=== PATIENT | male | born 1940 | race Caucasian/White ===

== ENCOUNTER 2017-02-04 15:31 | Inpatient (IN) | payer BC ==
[2017-02-04] MEDS ORDERED: ACETAMINOPHEN325 M2 PO (15:43)
[2017-02-04] MEDS ORDERED: BUSPIRONE HCL10 M2 PO (15:44)
[2017-02-04] MEDS ORDERED: SINEMET 25-1001 EAC1 PO ×2 (15:44→15:45)
[2017-02-04] MEDS ORDERED: COREG25 M1 PO (15:45)
[2017-02-04] MEDS ORDERED: DILTIAZEM ER120 M3 PO (15:45)
[2017-02-04] MEDS ORDERED: COLACE100 M1 PO (15:45)
[2017-02-04] MEDS ORDERED: ARICEPT5 M1 PO (15:46)
[2017-02-04] MEDS ORDERED: GABAPENTIN100 M1 PO (15:46)
[2017-02-04] MEDS ORDERED: FOLIC ACID1 M1 PO (15:46)
[2017-02-04] MEDS ORDERED: HUMULIN N100 UNIT/2 SC (15:46)
[2017-02-04] MEDS ORDERED: MILK OF MAGNESIA PO (15:47)
[2017-02-04] MEDS ORDERED: LANTUS100 UNITS/ (15:47)
[2017-02-04] MEDS ORDERED: HUMULIN R100 UNITS/ SC (15:47)
[2017-02-04] MEDS ORDERED: PRINIVIL5 M1 PO (15:47)
[2017-02-04] MEDS ORDERED: MIRTAZAPINE30 M2 PO (15:48)
[2017-02-04] MEDS ORDERED: OMEPRAZOLE20 M3 PO (15:48)
[2017-02-04] MEDS ORDERED: DEMADEX20 M1 PO (15:49)
[2017-02-04] MEDS ORDERED: ONDANSETRON HCL4 M2 PO (15:49)
[2017-02-04] MEDS ORDERED: XARELTO15 M1 PO (15:49)
[2017-02-04] MEDS ORDERED: ZOCOR20 M1 PO (15:49)
[2017-02-04 16:45] LABS: BASO % 0.3 % (0-2); EOS % 2.9 % (0-7); EOSINOPHIL ABSOLUTE COUNT 0.2 tho/cmm (0.0-0.7); HGB-HEMOGLOBIN 11.1 gm/dl (13.5-17.0); IMMATURE GRANULOCYTES ABSOLUTE 0.02 tho/cmm (0-0.03); IMMATURE GRANULOCYTES PERCENT 0.3 % (0-0.3); LYMPH % 16.2 % (20-45); LYMPH ABSOLUTE COUNT 1.2 tho/cmm (0.8-4.5); MCH (MEAN CORPUSCULAR HGB) 25.8 pg (28.0-32.0); MCHC MEAN CORPUSCULAR HGB CONC 31.7 % (32.0-36.0); MCV (MEAN CELL VOLUME) 81.4 fl (82.0-96.0); MEAN PLATELET VOLUME 9.6 cmc (9.4-12.4); MONO % 7.2 % (0-12); MONOCYTE ABSOLUTE COUNT 0.5 tho/cmm (0.0-1.2); NEUTROPHIL ABSOLUTE COUNT 5.5 tho/cmm (1.6-8.0); NEUTROPHIL-AUTOMATED 5.5 tho/cmm (1.6-8.0); NEUTROPHILS % 73.1 % (40-80); PLATELET COUNT 231 tho/cmm (150-450); RED CELL DISTRIBUTION WIDTH 16.1 % (12.4-16.4); WHITE BLOOD COUNT 7.5 tho/cmm (4.0-10.0)
[2017-02-04 17:01] LABS: ANION GAP 13 mmol/L (0-20); BLOOD UREA NITROGEN 20 mg/dl (6-24); CALCIUM 9.3 mg/dl (8.5-10.5); CARBON DIOXIDE-VENOUS 27 mmol/L (22-32); CHLORIDE 103 mmol/l (96-110); CREATININE 1.77 mg/dl (0.60-1.30); GLUCOSE 125 mg/dL (70-110); POTASSIUM 4.4 mmol/L (3.7-5.1); SODIUM 139 mmol/L (135-145); eGFR VALUE FOR BLACK 43 mL/Min
[2017-02-05 04:56] LABS: ANION GAP 13 mmol/L (0-20); BLOOD UREA NITROGEN 20 mg/dl (6-24); CALCIUM 8.9 mg/dl (8.5-10.5); CARBON DIOXIDE-VENOUS 27 mmol/L (22-32); CHLORIDE 102 mmol/l (96-110); CREATININE 1.78 mg/dl (0.60-1.30); POTASSIUM 4.1 mmol/L (3.7-5.1); SODIUM 138 mmol/L (135-145); eGFR VALUE FOR BLACK 43 mL/Min
[2017-02-05 04:57] LABS: GLUCOSE 277 mg/dL (70-110)
[2017-02-05 19:30] LABS: PROCALCITONIN <0.05 ng/ml (0.05-0.09)
[2017-02-06 05:20] LABS: BASO % 0.2 % (0-2); EOS % 4.4 % (0-7); EOSINOPHIL ABSOLUTE COUNT 0.2 tho/cmm (0.0-0.7); HCT-HEMATOCRIT 31.9 % (36.0-53.5); HGB-HEMOGLOBIN 10.1 gm/dl (13.5-17.0); IMMATURE GRANULOCYTES ABSOLUTE 0.02 tho/cmm (0-0.03); IMMATURE GRANULOCYTES PERCENT 0.4 % (0-0.3); LYMPH % 23.4 % (20-45); LYMPH ABSOLUTE COUNT 1.2 tho/cmm (0.8-4.5); MCH (MEAN CORPUSCULAR HGB) 25.7 pg (28.0-32.0); MCHC MEAN CORPUSCULAR HGB CONC 31.7 % (32.0-36.0); MCV (MEAN CELL VOLUME) 81.2 fl (82.0-96.0); MEAN PLATELET VOLUME 9.4 cmc (9.4-12.4); MONO % 9.8 % (0-12); MONOCYTE ABSOLUTE COUNT 0.5 tho/cmm (0.0-1.2); NEUTROPHIL ABSOLUTE COUNT 3.2 tho/cmm (1.6-8.0); NEUTROPHIL-AUTOMATED 3.2 tho/cmm (1.6-8.0); NEUTROPHILS % 61.8 % (40-80); PLATELET COUNT 183 tho/cmm (150-450); RED BLOOD COUNT 3.93 mil/cmm (4.40-5.70); RED CELL DISTRIBUTION WIDTH 16.4 % (12.4-16.4); WHITE BLOOD COUNT 5.2 tho/cmm (4.0-10.0)
[2017-02-06 05:34] LABS: ANION GAP 12 mmol/L (0-20); BLOOD UREA NITROGEN 29 mg/dl (6-24); CALCIUM 8.5 mg/dl (8.5-10.5); CARBON DIOXIDE-VENOUS 29 mmol/L (22-32); CHLORIDE 98 mmol/l (96-110); GLUCOSE 231 mg/dL (70-110); POTASSIUM 3.8 mmol/L (3.7-5.1); SODIUM 135 mmol/L (135-145); eGFR VALUE FOR BLACK 30 mL/Min
[2017-02-06 05:38] LABS: CREATININE 2.41 mg/dl (0.60-1.30)
[2017-02-07 05:46] LABS: BASO % 0.2 % (0-2); EOS % 4.5 % (0-7); EOSINOPHIL ABSOLUTE COUNT 0.2 tho/cmm (0.0-0.7); HCT-HEMATOCRIT 33.2 % (36.0-53.5); HGB-HEMOGLOBIN 10.5 gm/dl (13.5-17.0); IMMATURE GRANULOCYTES ABSOLUTE 0.01 tho/cmm (0-0.03); IMMATURE GRANULOCYTES PERCENT 0.2 % (0-0.3); LYMPH % 18.2 % (20-45); LYMPH ABSOLUTE COUNT 0.9 tho/cmm (0.8-4.5); MCH (MEAN CORPUSCULAR HGB) 25.6 pg (28.0-32.0); MCHC MEAN CORPUSCULAR HGB CONC 31.6 % (32.0-36.0); MEAN PLATELET VOLUME 9.7 cmc (9.4-12.4); MONO % 9.2 % (0-12); MONOCYTE ABSOLUTE COUNT 0.5 tho/cmm (0.0-1.2); NEUTROPHIL ABSOLUTE COUNT 3.5 tho/cmm (1.6-8.0); NEUTROPHIL-AUTOMATED 3.5 tho/cmm (1.6-8.0); NEUTROPHILS % 67.7 % (40-80); PLATELET COUNT 196 tho/cmm (150-450); RED CELL DISTRIBUTION WIDTH 16.3 % (12.4-16.4); WHITE BLOOD COUNT 5.1 tho/cmm (4.0-10.0)
[2017-02-07 05:57] LABS: ANION GAP 13 mmol/L (0-20); BLOOD UREA NITROGEN 31 mg/dl (6-24); CALCIUM 8.5 mg/dl (8.5-10.5); CARBON DIOXIDE-VENOUS 26 mmol/L (22-32); CHLORIDE 99 mmol/l (96-110); CREATININE 2.35 mg/dl (0.60-1.30); GLUCOSE 296 mg/dL (70-110); POTASSIUM 3.9 mmol/L (3.7-5.1); SODIUM 134 mmol/L (135-145); eGFR VALUE FOR BLACK 30 mL/Min
[2017-02-08 05:59] LABS: BASO % 0.2 % (0-2); EOS % 4.1 % (0-7); EOSINOPHIL ABSOLUTE COUNT 0.2 tho/cmm (0.0-0.7); HCT-HEMATOCRIT 34.6 % (36.0-53.5); HGB-HEMOGLOBIN 10.9 gm/dl (13.5-17.0); IMMATURE GRANULOCYTES ABSOLUTE 0.01 tho/cmm (0-0.03); IMMATURE GRANULOCYTES PERCENT 0.2 % (0-0.3); LYMPH % 19.3 % (20-45); MCH (MEAN CORPUSCULAR HGB) 25.5 pg (28.0-32.0); MCHC MEAN CORPUSCULAR HGB CONC 31.5 % (32.0-36.0); MONO % 9.8 % (0-12); MONOCYTE ABSOLUTE COUNT 0.5 tho/cmm (0.0-1.2); NEUTROPHIL ABSOLUTE COUNT 3.6 tho/cmm (1.6-8.0); NEUTROPHIL-AUTOMATED 3.6 tho/cmm (1.6-8.0); NEUTROPHILS % 66.4 % (40-80); PLATELET COUNT 213 tho/cmm (150-450); RED BLOOD COUNT 4.27 mil/cmm (4.40-5.70); RED CELL DISTRIBUTION WIDTH 16.1 % (12.4-16.4); WHITE BLOOD COUNT 5.4 tho/cmm (4.0-10.0)
[2017-02-08 06:11] LABS: ANION GAP 14 mmol/L (0-20); BLOOD UREA NITROGEN 30 mg/dl (6-24); CALCIUM 8.7 mg/dl (8.5-10.5); CARBON DIOXIDE-VENOUS 27 mmol/L (22-32); CHLORIDE 100 mmol/l (96-110); GLUCOSE 186 mg/dL (70-110); POTASSIUM 3.8 mmol/L (3.7-5.1); SODIUM 137 mmol/L (135-145); eGFR VALUE FOR BLACK 33 mL/Min
[2017-07-13] MEDS ORDERED: IPRAT-ALBUT 0.5-3 ML INH (16:38)
[2017-07-13] MEDS ORDERED: ELIQUIS2.5 M1 PO (16:41)
[2017-07-13] MEDS ORDERED: FEOSOL325 M1 PO (16:42)
[2017-07-13] MEDS ORDERED: GERI-LANTA LIQ355 M1 PO (16:43)
[2017-07-13] MEDS ORDERED: LEVEMIR100 UNITS/ SC (16:55)
[2017-07-13] MEDS ORDERED: PRINIVIL10 M1 PO (16:56)
[2017-07-13] MEDS ORDERED: METOLAZONE5 M1 PO (16:56)
[2017-07-13] MEDS ORDERED: DEMADEX20 M1 PO (16:57)
[2017-07-13] MEDS ORDERED: NOVOLIN R100 UNIT/1 SC (17:01)
[2017-07-13] MEDS ORDERED: NOVOLIN N100 UNIT/2 SC (17:02)
[2017-07-13] MEDS ORDERED: NITROGLYCERIN0.4 M2 SL (17:06)
== END 2017-02-09 14:20 | DRG 291 ==
LOC: EDMED 15:31 → EMR2 18:05 → PCUB 20:56
PROVIDERS: Emergency Medicine; Family Medicine; Physician Assistant Medical; ADMIT Internal Medicine
DX: I13.0 Hypertensive heart and chronic kidney disease with heart failure and stage 1 through stage 4 chronic kidney disease, or unspecified chronic kidney disease (principal); I50.21 Acute systolic (congestive) heart failure; N17.9 Acute kidney failure, unspecified; E11.22 Type 2 diabetes mellitus with diabetic chronic kidney disease; K76.6 Portal hypertension; N18.3 Chronic kidney disease, stage 3 (moderate); I42.9 Cardiomyopathy, unspecified; I27.2 Other secondary pulmonary hypertension; E11.65 Type 2 diabetes mellitus with hyperglycemia; I48.1 Persistent atrial fibrillation; J98.11 Atelectasis; I50.1 Left ventricular failure, unspecified; R79.89 Other specified abnormal findings of blood chemistry; E78.5 Hyperlipidemia, unspecified; Z87.891 Personal history of nicotine dependence; G20 Parkinson's disease; F41.9 Anxiety disorder, unspecified; Z79.4 Long term (current) use of insulin; Z86.718 Personal history of other venous thrombosis and embolism; K74.60 Unspecified cirrhosis of liver; K21.9 Gastro-esophageal reflux disease without esophagitis; G40.909 Epilepsy, unspecified, not intractable, without status epilepticus; Z79.01 Long term (current) use of anticoagulants; Z88.2 Allergy status to sulfonamides; Z88.8 Allergy status to other drugs, medicaments and biological substances; R59.1 Generalized enlarged lymph nodes; I34.0 Nonrheumatic mitral (valve) insufficiency
CPT/HCPCS: G8978-GO-CJ; G8978-GP-CK; G8979-GO-CJ; G8979-GP-CJ; G8987-GO-CJ; G8988-GO-CJ; J0456; J0696; J1815; J1940; J3370; J3475; J7050